=== PATIENT | female | born 1995 | race Caucasian/White ===

== ENCOUNTER 2021-04-25 13:33 | Emergency (ER) | payer MEDICAID ==
[~2021-04-25] VITALS: Ht 162.6 cm; Wt 56.8 kg
[2021-04-25 14:21] VITALS: BP 165/101; TEMP 98.1
[2021-04-25] MEDS ORDERED: PREDNISONE20 MG PO (15:29)
[2021-04-25 16:19] VITALS: PULSE 91
== END 2021-04-25 16:19 | disposition home or self-care (01) ==
LOC: COL.ER 13:33
DX: T78.40XA Allergy, unspecified, initial encounter (principal); F17.210 Nicotine dependence, cigarettes, uncomplicated
CPT/HCPCS: J7512